=== PATIENT | male | born 1980 | race Two or more races ===

== ENCOUNTER 2024-09-19 18:36 | Emergency (ER) | payer MEDICAID, SELFPAY ==
[2024-09-19 18:36] VITALS: PULSE 113; RESP 18; O2SAT 99
[2024-09-19 18:58] VITALS: BP 152/90; PULSE 99; RESP 18; TEMP 36.8; O2SAT 100; BMI 25.5
--- NOTE | 2024-09-19 19:15 | PD.EDRME ---
Rapid Medical Screening Exam [facility] Arrival date/time: 09/19/24 18:36 43M with history of psych presents to ED with 2 days of epigastric pain. Chief Complaint: Abdominal Pain Vital signs: Vital Signs Temperature 98.3 F 09/19/24 18:58 Pulse Rate 99 09/19/24 18:58 Respiratory Rate 18 09/19/24 18:58 Blood Pressure 152/90 H 09/19/24 18:58 Pulse Oximetry (%) 100 09/19/24 18:58 Oxygen Delivery Method Room Air 09/19/24 18:58
[2024-09-19 19:55] LABS: Basophils % (Auto) 0 % (0-2.5); Eosinophils % (Auto) 0 % (0-10); Hemoglobin 15.8 g/dL (13.5-16.0); Immature Granulocytes % (Auto) 0 % (0-0); Immature Granulocytes Auto 0.03 Thou/mm3 (0.00-0.00); Lymphocytes # (Auto) 1.7 Thou/mm3 (1.0-4.8); Lymphocytes % (Auto) 16 % (10-50); Mean Corpuscular HGB Conc 34.3 g/dl (31.0-37.0); Mean Corpuscular Hemoglobin 29.9 pg (25.0-35.0); Mean Corpuscular Volume 87 fL (80-100); Monocytes # (Auto) 0.5 Thou/mm3 (0.0-0.8); Monocytes % (Auto) 5 % (0-12); Neutrophils # (Auto) 8.2 Thou/mm3 (1.8-7.7); Neutrophils % (Auto) 79 % (37-80); Nucleated Red Blood Cell % 0 /100 WBC (0); Platelet Count 308 Thou/mm3 (140-440); RDW Standard Deviation 42.5 fL (35.1-43.9); Red Blood Count 5.28 Miln/mm3 (4.50-5.90); White Blood Count 10.4 Thou/mm3 (3.8-10.6)
[2024-09-19 20:09] LABS: Amphetamine/Methamp Scrn,U Positive (Negative); Barbiturate Screen,Urine Negative (Negative); Benzodiazepines Screen,Urine Negative (Negative); Benzoylecgonine Screen, Ur Negative (Negative); Fentanyl Screen,Urine Negative (Negative); Opiate Screen,Urine Negative (Negative); THC Screen,Urine Positive (Negative)
[2024-09-19 20:16] LABS: Alanine Aminotransferase 24 U/L (10-49); Albumin, Serum 5.1 gm/dL (3.5-5.0); Albumin/Globulin Ratio 1.6 (1.2-2.2); Alcohol, Blood Medical < 10.0 mg/dL (0-10.0); Alkaline Phosphatase 85 U/L (46-116); Anion Gap 6 (7-16); Aspartate Amino Transferase 43 U/L (0-34); BUN/Creatinine Ratio 13 Ratio (12-20); Bilirubin,Total 0.4 mg/dL (0.3-1.2); Blood Urea Nitrogen 13 mg/dL (9-23); Calcium 10.1 mg/dL (8.3-10.6); Calcium (Corrected) 10.1 mg/dL (8.5-10.1); Carbon Dioxide 25.7 mMol/L (20.0-31.0); Chloride 103 mMol/L (98-107); Globulin 3.2 gm/dL (2.3-3.5); Glucose 115 mg/dL (74-106); Lipase 31 U/L (12-53); Osmolality,Calculated 271 (275-295); Potassium 4.4 mMol/L (3.4-5.1); Sodium 135 mMol/L (136-145); Total Protein 8.3 gm/dL (5.7-8.2); eGFR > 60 See Note
[2024-09-19] MEDS: MG HYD/AL HYD/SIME (Maalox Reg) SUSP 30 ML UDC PO (20:26)
[2024-09-19] MEDS: FAMOTIDINE 20 MG TABLET PO (20:26)
[2024-09-19 20:30] LABS: Collection Type, Urine Clean Catch; RBC,Urine 0 /hpf (0-3); Squamous Epithelial Cell,Urine 0 /hpf (0-5); WBC,Urine 0 /hpf (0-5)
[2024-09-19 20:50] LABS: Bilirubin,Urine Negative (Negative); Blood,Urine Negative (Negative); Clarity,Urine Turbid (Clear/Hazy); Color,Urine Yellow (Lt Yel-Yel); Culture Indicated,Urine Not Indicated; Glucose, Urine Negative (Negative); Ketones,Urine Negative (Negative); Leukocyte Esterase,Urine Negative (Negative); Nitrite,Urine Negative (Negative); PH,Urine 6.5 (5.0-7.0); Protein,Urine 1+ (Neg - Trace); Specific Gravity,Urine 1.023 (1.001-1.035); Urobilinogen,Urine Negative mg/dL (0.0-1.0)
[2024-09-19 22:30] VITALS: BP 150/86; PULSE 110; RESP 19; TEMP 36.9; O2SAT 100
--- NOTE | 2024-09-19 23:57 | EDNOTE_ITS ---
ED Abdominal Pain RME/HPI General Chief Complaint: Abdominal Pain Stated complaint: ABD PAIN, NAUSEA Arrival date/time: 09/19/24 18:36 43M with history of psych/drug use presents to ED with 2 days of epigastric pain. Limitations: no limitations Related Data Home Medications ?Medication ?Instructions ?Recorded ?Confirmed benztropine 0.5 mg tablet 0.5 mg PO BID 02/11/24 02/11/24 divalproex 500 mg tablet,delayed 500 mg PO BID 02/11/24 02/11/24 release haloperidol 10 mg tablet 10 mg PO BID 02/11/24 02/11/24 Previous Rx's ?Medication ?Instructions ?Recorded famotidine 40 mg tablet (Pepcid) 40 mg PO QDAY #30 tabs 09/19/24 Allergies Allergy/AdvReac Type Severity Reaction Status Date / Time garlic Allergy Severe Swelling Verified 08/09/24 09:44 of Lip/Tongue/Throat Review of Systems Review of Systems Systems Reviewed: All systems reviewed, normal except as documented Constitutional Constitutional: Reports system reviewed and no additional complaints, except as documented, Denies fever(s) and Denies headache(s) ENT Ears, Nose, Mouth, and Throat: Denies disequilibrium and Denies headache(s) Cardiovascular Cardiovascular: Reports system reviewed and no additional complaints, except as documented, Denies chest pain and Denies dyspnea Respiratory Respiratory: Reports system reviewed and no additional complaints, except as documented, Denies cough and Denies dyspnea Gastrointestinal Gastrointestinal: Reports system reviewed and no additional complaints, except as documented, Reports as per HPI, Reports abdominal pain, Denies nausea and Denies vomiting Neurologic Neurologic: Reports system reviewed and no additional complaints, except as documented, Denies confusion, Denies disequilibrium and Denies headache(s) Psychiatric Psychiatric: Denies confusion Past Medical History Past Medical History CARDIAC: Negative Congestive Heart Failure RESPIRATORY: Negative Chronic Obstructive Pulmonary Disease (COPD) GENITOURINARY: Negative Renal Disease ENDOCRINE: Negative Diabetes Mellitus Type 1 or Diabetes Mellitus Type 2 PSYCHO/SOCIAL: Positive Schizophrenia and Bipolar Disorder Social History SMOKING STATUS: Never smoker ED Exam General Limitations: Present no limitations General appearance: Present alert and in no apparent distress Head Head exam: Present atraumatic Eye Eye exam: Present normal appearance, PERRL and EOMI ENT ENT exam: Present normal exam, normal oropharynx and mucous membranes moist Neck Neck exam: Present normal inspection, full ROM and trachea midline Chest Chest inspection: Present normal inspection and symmetric chest wall rise Respiratory Respiratory exam: Present normal lung sounds bilaterally Cardiovascular Cardiovascular exam: Present regular rate, normal rhythm and normal heart sounds Abdominal Exam Abdominal exam: Present soft and normal bowel sounds Abdominal tenderness: Present epigastrium and mild Extremities Exam Extremities exam: Present normal inspection and full ROM Back Exam Back exam: Present normal inspection and full ROM Neurological Exam Neurological exam: Present alert, oriented X3 and CN II-XII intact Psychiatric Psychiatric exam: Present normal affect and normal mood Skin Skin exam: Present warm, dry, intact and normal color Course Quality Measures none Orders Category Date Time Status Alcohol, Blood Medical Stat Lab 09/19/24 19:40 Completed CBC Stat Lab 09/19/24 19:40 Completed CMP [Comprehensive Metabolic Panel] Stat Lab 09/19/24 19:40 Completed Drug Screen,Urine Stat Lab 09/19/24 19:29 Completed Lipase Stat Lab 09/19/24 19:40 Completed UA, C/S IF [Urinalysis, C/S if Indicated] Stat Lab 09/19/24 19:29 Completed Famotidine [Pepcid] Med 09/19/24 19:15 Discontinued 20 mg PO X1 ONE mg Hyd/Al Hyd/Sasha Susp [Maalox Susp] Med 09/19/24 19:15 Discontinued 30 ml PO X1 ONE Vital Signs Vital signs: Vital Signs Temperature 98.3 F 09/19/24 18:58 Pulse Rate 99 09/19/24 18:58 Respiratory Rate 18 09/19/24 18:58 Blood Pressure 152/90 H 09/19/24 18:58 Pulse Oximetry (%) 100 09/19/24 18:58 Oxygen Delivery Method Room Air 09/19/24 18:58 O2 at 100% on RA and WNLs Abdominal Pain MDM MDM Narrative MDM Narrative:: 43M with history of psych/drug use presents to ED with 2 days of epigastric pain. Physical exam reveals mild epigastric tenderness. Patient is afebrile, calm, and alert. No leukocytosis. Lipase normal. CMP unremarkable. Meth/marijuana positive. GI cocktail relieved symptoms. Likely gastritis. Patient data External records reviewed:: [facility] previous records Clinical information provided by:: patient Social determinants that could affect healthcare access:: mental health Patient has the following chronic illnesses:: drug/psych How is presenting disease/condition affected by chronic disease/condition?: exacerbated by Evaluation data The following diagnostics were reviewed and interpreted by me:: lab results Lab and/or radiology exams considered but not ordered:: ordered Interpretation Summary: above Medications / Prescriptions Medications or Prescriptions considered but not ordered:: ordered Medication administrations:: Medication Administration History Discontinued Medications Al Hydrox/Mg Hydrox/Simethicone (Mg Hyd/Al Hyd/Sasha (Maalox Reg) Susp 30 Ml Udc) 30 ml PO X1 ONE Stop: 09/19/24 19:16 Last Admin: 09/19/24 20:26 Dose: 30 ml Documented By: CVL Famotidine (Famotidine 20 Mg Tablet) 20 mg PO X1 ONE Stop: 09/19/24 19:16 Last Admin: 09/19/24 20:26 Dose: 20 mg Documented By: CVL above Consultations Consultation(s) initiated? (list below): No Diagnosis Differential diagnosis abdominal pain: abdominal pain, acute appendicitis, calculus of kidney, constipation, diverticulitis, gastroenteritis, pancreatitis, small bowel obstruction and other (gastritis) Most likely diagnosis given after review of the tests above:: gastritis Admission Indicated Admission indicated?: not indicated Admission Request Was there a request for admission?: No Disposition Plan Disposition Plan: Discharge Discharge Attestation Discharge Attestation: The patient and all family members were given an opportunity to ask questions and understood the discharge instructions. Discharge instructions specifically effects, indications for sooner follow up or return to the emergency department, and the expected course of current diagnosis. Patient condition: Stable Discharge Plan Plan Patient Disposition: HOME (Self Care) Disposition Comment: Stable Prescriptions/Referrals Prescriptions/Med Rec: New famotidine [Pepcid] 40 mg tablet 40 mg PO QDAY Qty: 30 0RF No Action benztropine 0.5 mg tablet 0.5 mg PO BID Patient Comments: take 1 tablet by mouth twice a day divalproex 500 mg tablet,delayed release (DR/EC) 500 mg PO BID Patient Comments: take 1 tablet by mouth twice a day haloperidol 10 mg tablet 10 mg PO BID Patient Comments: take 1 tablet by mouth twice a day Referrals: Shola Vera PA-C [Primary Care Provider] - In 1 week Problem List Clinical Impression: Gastritis Patient/Caregiver Discharge Instructions Education Materials: ED Gastritis (Adult) Additional Instructions: Please follow-up with PCP within 24-48 hours and return immediately if symptoms worsen. Print Language: Malaysian Stand Alone Forms: Patient Portal Info Letter PA/QUALITY CONTROL LAB TECH Supervising Physician PA/QUALITY CONTROL LAB TECH Supervising Physician: Dr. Aden
[2024-09-19 23:59] VITALS: BP 150/82; PULSE 106; RESP 18; TEMP 36.7; O2SAT 99
== END 2024-09-20 00:01 | disposition home or self-care (01) ==
PROVIDERS: Physician Assistant; Emergency Provider Emergency Medicine; PCP Physician Assistant
DX: K29.70 Gastritis, unspecified, without bleeding (principal)
CPT/HCPCS: 36415; 80053; 80307; 80320; 81001; 83690; 85025; 99283; A9270; G0480

== ENCOUNTER 2025-01-06 08:15 | Emergency (ER) | payer MEDICAID, SELFPAY ==
[2025-01-06 08:32] VITALS: BP 122/66; PULSE 81; RESP 18; TEMP 36.6; O2SAT 98; BMI 26.6
[2025-01-06 08:43] VITALS: PULSE 110; RESP 20; O2SAT 95
--- NOTE | 2025-01-06 08:43 | PC.NURSE ---
Patient to er via ems from home. [facility] placed patient on 72hr hold for c/o SI stating to [facility] he was going to slit his wrist. Patient non compliant with psych medications, hearing and seeing things per pacu nurse, Currently patient able to follow commands, however, flight of ideas and disorganized speech. Patient talking to himself. Patient denies SI, however, patient states he has tried to shoot himself and cut himself in the past 27 times Patient denies HI and is cooperative and directable. Security searched patient and 1:[address] for patient's safety[address] S/S made aware of patient's hold.
--- NOTE | 2025-01-06 09:05 | PC.NURSE ---
Patient change into gown,document his belongings and place it locker 3
--- NOTE | 2025-01-06 09:09 | PD.EDPSYCH ---
ED Psych RME/HPI General Chief Complaint: Psychiatric Symptoms Stated Complaint: 72hr hold for SI/hearing voices Time Seen by Provider: 01/06/25 08:31 Arrival date/time: 01/06/25 08:15 RME / HPI RME / HPI Narrative: DR. SALDAÑA MAIN ED EVALUATION: 44 year old male with past medical history significant for schizophrenia, bipolar disorder, methamphetamine and marijuana abuse presents to the Emergency Department BIB from [facility] after placed on a psychiatric hold for suicidal ideation. Patient stated that he was going to slit his wrist. Associated symptoms include auditory and visual hallucinations, per med aide. Patient is non complaint with psych medications. Related Data Home Medications ?Medication ?Instructions ?Recorded ?Confirmed benztropine 0.5 mg tablet 0.5 mg PO BID 02/11/24 02/11/24 divalproex 500 mg tablet,delayed 500 mg PO BID 02/11/24 02/11/24 release haloperidol 10 mg tablet 10 mg PO BID 02/11/24 02/11/24 Previous Rx's ?Medication ?Instructions ?Recorded famotidine 40 mg tablet (Pepcid) 40 mg PO QDAY #30 tabs 09/19/24 Allergies Allergy/AdvReac Type Severity Reaction Status Date / Time garlic Allergy Severe Swelling Verified 08/09/24 09:44 of Lip/Tongue/Throat Review of Systems Review of Systems Systems Reviewed: All systems reviewed, normal except as documented Narrative Review of Systems: GEN: No fever, no chills, no weight loss EYES: No discharge, no visual changes, no pain HEENT: No ear pain, no congestion, no sore throat PULM: No shortness of breath, no cough, no congestion CV: No chest pain, no dyspnea on exertion, no palpitations GI: No nausea, no vomiting, no diarrhea, no pain, no constipation : No frequency, no urgency and no dysuria MUSC/SKEL: No joint pain, no back pain SKIN: No rash PSYCH: + suicidal ideation (see HPI), + auditory and visual hallucinations HEME/LYMPH: No easy bleeding or bruising tendencies NEURO: No weakness, no headache Past Medical History Past Medical History PSYCHO/SOCIAL: Positive Schizophrenia and Bipolar Disorder Social History SMOKING STATUS: Never smoker SUBSTANCE USE: marijuana and methamphetamine ALCOHOL: Never ED Exam Narrative Physical exam: GENERAL APPEARANCE:? alert and oriented x 4, well-developed, well-nourished, no acute distress HEENT: normocephalic, atraumatic NECK: supple LUNGS: no respiratory distress, normal effort HEART: good peripheral perfusion ABDOMEN: non distended EXTREMITIES:? atraumatic NEUROLOGIC: awake; alert and oriented x4; cranial nerves II-XII grossly intact PSYCHIATRIC:? pressured speech, agitated moderately SKIN: warm, dry, normal color; no rashes Course Quality Measures none Orders Category Date Time Status Diet Regular Diet 01/06/25 Lunch Active Alcohol, Urine Stat Lab 01/06/25 09:13 Completed Drug Screen,Urine Stat Lab 01/06/25 09:13 Completed DiphenhydrAMINE INJ [Benadryl Inj] Med 01/06/25 09:50 Discontinued 50 mg IM X1 ONE DiphenhydrAMINE [Benadryl] Med 01/06/25 09:38 Discontinued 50 mg PO X1 ONE Divalproex Sod Dr [Deplouisete Dr] Med 01/06/25 09:38 Discontinued 500 mg PO X1 ONE Haloperidol Lactate [Haldol Inj] Med 01/06/25 09:50 Discontinued 5 mg IM X1 ONE LORazepam [Ativan Inj] Med 01/06/25 09:50 Discontinued 2 mg IM X1 ONE LORazepam [Ativan] Med 01/06/25 09:38 Discontinued 2 mg PO X1 ONE haloperidoL [Haldol] Med 01/06/25 09:38 Discontinued 10 mg PO X1 ONE Vital Signs Vital signs: Vital Signs Temperature 97.8 F 01/06/25 08:32 Pulse Rate 81 01/06/25 08:32 Respiratory Rate 18 01/06/25 08:32 Blood Pressure 122/66 01/06/25 08:32 Pulse Oximetry (%) 98 01/06/25 08:32 Oxygen Delivery Method Room Air 01/06/25 08:32 Psych MDM Narrative MDM Narrative:: I, Rosa Elena Ashby am scribing for and in the presence of Dr. Saldaña. Patient data External records reviewed:: [facility] previous records (Reviewed last ED visit dated 09/19/24, discharged with the following: Gastritis.) Clinical information provided by:: patient Social determinants that could affect healthcare access:: substance use (methamphetamine and marijuana abuse) Patient has the following chronic illnesses:: schizophrenia, bipolar disorder How is presenting disease/condition affected by chronic disease/condition?: exacerbated by Evaluation data The following diagnostics were reviewed and interpreted by me:: lab results Lab and/or radiology exams considered but not ordered:: none Interpretation Summary: tested positive for methamphetamine and marijuana Medications / Prescriptions Medications or Prescriptions considered but not ordered:: none Medication administrations:: Medication Administration History Discontinued Medications Diphenhydramine HCl (Diphenhydramine Elix 25 Mg/10 Ml Udc) 50 mg PO X1 ONE Stop: 01/06/25 09:39 Last Admin: 01/06/25 10:32 Dose: Not Given Documented By: BENJI Non-Admin Reason: Duplicate Medication on eMAR Diphenhydramine HCl (Diphenhydramine Inj 50 Mg/Ml Vial) 50 mg IM X1 ONE Stop: 01/06/25 09:51 Last Admin: 01/06/25 10:45 Dose: 50 mg Documented By: RENETTA Divalproex Sodium (Divalproex Sod Dr 500 Mg Tablet.) 500 mg PO X1 ONE Stop: 01/06/25 09:39 Last Admin: 01/06/25 10:32 Dose: Not Given Documented By: BENJI Non-Admin Reason: Discontinued Haloperidol (Haloperidol 5 Mg Tablet) 10 mg PO X1 ONE Stop: 01/06/25 09:39 Last Admin: 01/06/25 10:32 Dose: Not Given Documented By: BENJI Non-Admin Reason: Duplicate Medication on eMAR Haloperidol Lactate (Haloperidol Lact Inj 5 Mg/Ml Vial) 5 mg IM X1 ONE Stop: 01/06/25 09:51 Last Admin: 01/06/25 10:45 Dose: 5 mg Documented By: RENETTA Lorazepam (Lorazepam 0.5 Mg Tablet) 2 mg PO X1 ONE Stop: 01/06/25 09:39 Last Admin: 01/06/25 10:32 Dose: Not Given Documented By: KM Non-Admin Reason: Duplicate Medication on eMAR Lorazepam (Lorazepam 2 Mg/Ml Vial) 2 mg IM X1 ONE Stop: 01/06/25 09:51 Last Admin: 01/06/25 10:45 Dose: 2 mg Documented By: Gera see above Consultations Consultation(s) initiated? (list below): Yes Consultation #1 (Physician, Specialty, Details): Mental health got patient accepted for placement at [facility], patient accepted by Dr. Li. Time: 16:14 Diagnosis Psych Differential Diagnosis: acute psychosis, chronic schizophrenia, suicidal ideation, bipolar disorder, depression, drug-induced psychotic disorder and acute anxiety Most likely diagnosis given after review of the tests above:: Schizophrenia Bipolar disorder Methamphetamine abuse Marijuana abuse Admission Indicated Admission indicated?: not indicated Explain why admission is indicated or not indicated:: Patient accepted for placement at [facility]. Admission Request Was there a request for admission?: No Disposition Plan Disposition Plan: other (specify) (Patient accepted for placement at [facility].) Discharge Plan Prescriptions/Referrals Prescriptions/Med Rec: No Action benztropine 0.5 mg tablet 0.5 mg PO BID Patient Comments: take 1 tablet by mouth twice a day divalproex 500 mg tablet,delayed release (DR/EC) 500 mg PO BID Patient Comments: take 1 tablet by mouth twice a day haloperidol 10 mg tablet 10 mg PO BID Patient Comments: take 1 tablet by mouth twice a day famotidine [Pepcid] 40 mg tablet 40 mg PO QDAY Qty: 30 0RF Referrals: No Primary/Family,Physician [Primary Care Provider] - In 1 week Problem List Clinical Impression: Chronic schizophrenia, Bipolar disorder, Methamphetamine abuse, Marijuana abuse Patient/Caregiver Discharge Instructions Print Language: Malaysian
--- NOTE | 2025-01-06 09:50 | PC.NURSE ---
pt refused to take oral meds
[2025-01-06 10:01] LABS: Alcohol, Urine Negative (Negative); Amphetamine/Methamp Scrn,U Positive (Negative); Barbiturate Screen,Urine Negative (Negative); Benzodiazepines Screen,Urine Negative (Negative); Benzoylecgonine Screen, Ur Negative (Negative); Fentanyl Screen,Urine Negative (Negative); Opiate Screen,Urine Negative (Negative); THC Screen,Urine Positive (Negative)
--- NOTE | 2025-01-06 10:35 | PC.NURSE ---
Patient medically cleared, S/S worker made aware.
[2025-01-06] MEDS: LORazepam 2 MG/ML VIAL IM (10:45)
[2025-01-06] MEDS: DiphenhydrAMINE INJ 50 MG/ML VIAL IM (10:45)
[2025-01-06] MEDS: HALOPERIDOL LACT INJ 5 MG/ML VIAL IM (10:45)
[2025-01-06 11:01] VITALS: BP 128/66; PULSE 61; RESP 18; TEMP 36.6; O2SAT 100
--- NOTE | 2025-01-06 12:21 | PC.CC ---
Patient priscila 44 year-old male who was BIBA on a 5150-hold by [facility]. It was reported by the [facility] that patient has a history of Schizophrenia and has not been compliant with his medication. Valorie ROMAN made [id number] contact with patient. ASW introduced self, role, and reason for visit.?Patient appeared alert and oriented to only to self. Patient presented unkempt and disheveled with disorganized thought process. Patient presented as delusional as having visual and auditory hallucinations. Patient made bizarre statements, I cut everything off down there. ASW unable to engage with client due to hallucinations, bizarre thinking and active hallucinations. ASW unable to have a congruent conversation with patient. Patient reports he does not want to kill himself. However, reports he has had suicide attempts in the past. Patient unable to provide when the last time was. ASW unable to pertain collateral information from mother as patient did consent for ASW to collaborate with mother for further information regarding patient's history of mental health. Patient declined labs. Upon clinical consultation with Kateryna TESFAYE patient's 5150-hold will be upheld for Gravely Disabled and Danger to Self. Valorie ROMAN provided update to Dr. Saldaña, tattooer Kaylene, and bedside RN regarding discharge plan to [facility] facility. ASW to send referral via [place].
[2025-01-06 14:22] VITALS: BP 135/80; PULSE 73; RESP 16; TEMP 36.7; O2SAT 96
--- NOTE | 2025-01-06 15:36 | PC.CC ---
Patient was accepted to [facility] to arrive tomorrow 01/07/2025 by 9am. ASW provided [facility] [place]. Gena with [facility] provided accepting information. Patient accepted by Dr. Li into [facility]. Nurse to Nurse report [phone]. ASW provided Sr. Saldaña, Charge Kaylene, and bedside RN Cristian with discharge plan update. ASW arranging transportation.
[2025-01-06 17:28] VITALS: BP 116/68; PULSE 100; RESP 18; TEMP 36.6; O2SAT 98
--- NOTE | 2025-01-06 17:55 | PC.NURSE ---
Gave pt his dinner tray and eating at this time.
--- NOTE | 2025-01-06 19:57 | EDNOTE_ITS ---
Emergency Room Addendum Addendum Narrative: 1800: Care assumed from the previous shift emergency physician. Past medical, surgical, social and family history reviewed. Vitals and home medications reviewed. I will assume the care of the patient at this time, pending transfer to [facility]. Please refer to the emergency department record for history and examination from initial visit. Physical exam by me shows patient under no acute distress at this time. The patient was placed in ED observation care at 01/06/2025 at 1800 hours. The patients past medical history, social history, and family history were reviewed. The plan of care will include serial examinations. While in ED observation the patient will have access to water, food, and personal hygiene. If the patient takes home medication(s), they will be continued in ED observation. 0600: Patient was signed out to [facility] daysgaft provider. Past medical, surgical, social and family history reviewed. Vitals and home medications reviewed. Results and treatment plan discussed. They will assume the care of the patient at this time and will follow the patient, pending psychiatric placement. MD Attestation MD Attestation Scribe Attestation: I, Yeyo Caldera, am scribing for and in the presence of Dr. Anders. Provider Notation: Although this document has been carefully reviewed, there may still be some phonetic and other typographical errors. These errors are purely grammatical due to imperfections in the software program and should not be construed in any way to compromise the substance of the patient's medical care during this visit.
[2025-01-07 01:01] VITALS: BP 117/74; PULSE 80; RESP 16; TEMP 36.7; O2SAT 97
[2025-01-07 03:22] VITALS: BP 113/75; PULSE 78; RESP 17; TEMP 36.9; O2SAT 96
[2025-01-07 05:47] VITALS: BP 107/71; PULSE 96; RESP 19; TEMP 36.4; O2SAT 95
--- NOTE | 2025-01-07 06:11 | PC.NURSE ---
Pt got into faucet in room and started spilling water onto floor. Engineering called to turn water off, floor was puddled with water. Staff with assistance of security had to go in to assist pt onto sharon for his safety for a fall risk. floor was dried, engineering turn water off.
--- NOTE | 2025-01-07 07:20 | PC.NURSE ---
Received report from Isabel ENGLISH and assumed care of patient. Patient pacing in room and observed talking to self. Awaiting transport.
--- NOTE | 2025-01-07 08:33 | PC.NURSE ---
[facility] picked up patient for transport to [place].
--- NOTE | 2025-01-07 11:29 | PC.NURSE ---
Report given to Rizwana ENGLISH at [facility].
== END 2025-01-07 08:41 ==
PROVIDERS: Emergency Medicine; Emergency Provider Emergency Medicine
DX: R45.851 Suicidal ideations (principal); F20.9 Schizophrenia, unspecified; F15.10 Other stimulant abuse, uncomplicated; F31.9 Bipolar disorder, unspecified; F12.10 Cannabis abuse, uncomplicated
CPT/HCPCS: 80053; 80307; 80320; 85025; 90839; 96127; 96372; 99285; J1200; J1630; J2060; G0480

== ENCOUNTER 2025-02-20 15:25 | Emergency (ER) | payer MEDICAID, SELFPAY ==
[2025-02-20 15:30] VITALS: BP 160/78; PULSE 130; RESP 20; TEMP 36.6; O2SAT 97
--- NOTE | 2025-02-20 15:33 | XR_ITS ---
Examination: PA lateral chest 2 views Technique: Upright PA lateral chest 2 views Exam date and time: February 20, 2025 1704 hrs. Comparison February 20, 2024 Indications: Onset chest pain today. Findings: Normal heart size Thoracic dextroscoliosis 15 degrees No pneumonia or pulmonary edema Impression: No pneumonia or pulmonary edema
--- NOTE | 2025-02-20 15:33 | PD.EDRME ---
Rapid Medical Screening Exam RME Arrival date/time: 02/20/25 15:25 44-year-old male presents to the emergency department for complaints of abdominal pain patient reports using methamphetamine today Chief Complaint: Abdominal Pain Vital signs: Vital Signs Temperature 97.8 F 02/20/25 15:30 Pulse Rate 130 H 02/20/25 15:30 Respiratory Rate 20 02/20/25 15:30 Blood Pressure 160/78 H 02/20/25 15:30 Pulse Oximetry (%) 97 02/20/25 15:30 Oxygen Delivery Method Room Air 02/20/25 15:30
[2025-02-20 16:53] LABS: Basophils % (Auto) 0 % (0-2.5); Eosinophils % (Auto) 0 % (0-10); Hematocrit 44.6 % (41.0-53.0); Hemoglobin 15.3 g/dL (13.5-16.0); Immature Granulocytes % (Auto) 0 % (0-0); Immature Granulocytes Auto 0.03 Thou/mm3 (0.00-0.00); Lymphocytes # (Auto) 0.7 Thou/mm3 (1.0-4.8); Lymphocytes % (Auto) 7 % (10-50); Mean Corpuscular HGB Conc 34.3 g/dl (31.0-37.0); Mean Corpuscular Hemoglobin 29.7 pg (25.0-35.0); Mean Corpuscular Volume 86 fL (80-100); Monocytes # (Auto) 0.5 Thou/mm3 (0.0-0.8); Monocytes % (Auto) 5 % (0-12); Neutrophils # (Auto) 8.6 Thou/mm3 (1.8-7.7); Neutrophils % (Auto) 87 % (37-80); Nucleated Red Blood Cell % 0 /100 WBC (0); Platelet Count 293 Thou/mm3 (140-440); RDW Standard Deviation 44.4 fL (35.1-43.9); Red Blood Count 5.16 Miln/mm3 (4.50-5.90)
[2025-02-20 17:07] LABS: B-Type Natriuretic Peptide < 20 pg/mL (0-100)
[2025-02-20 17:12] LABS: Alanine Aminotransferase 18 U/L (10-49); Albumin, Serum 5.2 gm/dL (3.5-5.0); Albumin/Globulin Ratio 1.7 (1.2-2.2); Alkaline Phosphatase 80 U/L (46-116); Anion Gap 13 (7-16); Aspartate Amino Transferase 41 U/L (0-34); BUN/Creatinine Ratio 15 Ratio (12-20); Bilirubin,Total 0.7 mg/dL (0.3-1.2); Blood Urea Nitrogen 16 mg/dL (9-23); Calcium 9.7 mg/dL (8.3-10.6); Calcium (Corrected) 9.7 mg/dL (8.5-10.1); Chloride 109 mMol/L (98-107); Creatinine (Component) 1.1 mg/dL (0.6-1.3); Globulin 3.1 gm/dL (2.3-3.5); Glucose 136 mg/dL (74-106); Lipase 30 U/L (12-53); Magnesium 2.1 mg/dL (1.6-2.6); Osmolality,Calculated 290 (275-295); Potassium 3.3 mMol/L (3.4-5.1); Sodium 144 mMol/L (136-145); Total Protein 8.3 gm/dL (5.7-8.2); Troponin I < 0.020 ng/mL (0.0-0.045); eGFR > 60 See Note
[2025-02-20 17:51] LABS: Collection Type, Urine Clean Catch; WBC,Urine 0 /hpf (0-5)
[2025-02-20 18:01] LABS: Partial Thromboplastin Time 27.6 Seconds (22.0-36.0); Prothrombin Time 10.9 Seconds (9.0-12.2)
[2025-02-20 18:07] LABS: Amphetamine/Methamp Scrn,U Positive (Negative); Barbiturate Screen,Urine Negative (Negative); Benzodiazepines Screen,Urine Negative (Negative); Benzoylecgonine Screen, Ur Negative (Negative); Bilirubin,Urine Negative (Negative); Blood,Urine 1+ (Negative); Clarity,Urine Clear (Clear/Hazy); Color,Urine Yellow (Lt Yel-Yel); Fentanyl Screen,Urine Negative (Negative); Glucose, Urine Negative (Negative); Ketones,Urine Trace (Negative); Leukocyte Esterase,Urine Negative (Negative); Nitrite,Urine Negative (Negative); Opiate Screen,Urine Negative (Negative); Protein,Urine 1+ (Neg - Trace); RBC,Urine 50 /hpf (0-3); Specific Gravity,Urine 1.035 (1.001-1.035); Squamous Epithelial Cell,Urine < 1 /hpf (0-5); THC Screen,Urine Negative (Negative)
--- NOTE | 2025-02-20 22:16 | EDNOTE_ITS ---
ED Abdominal Pain RME/HPI General Chief Complaint: Abdominal Pain Stated complaint: ABD PAIN X AM Time seen by provider: 02/20/25 22:16 Arrival date/time: 02/20/25 15:25 RME / HPI RME / HPI narrative: 02/20/25 15:25 44-year-old male presents to the emergency department for complaints of abdominal pain patient reports using methamphetamine today Dr. Valles?s Main ED Evaluation: 44yo male presents to the ED for complaints of lower abdominal pain that radiates to his back. Patient states his pain is chronic , reporting he gets it all the time . Patient denies any N/V/D, fever, chills, constipation, decreased appetite or any other associated symptoms. Patient states he drank alcohol and used crystal meth in an attempt to subside his pain at 1400. Denies any abdominal PSH. Related Data Home Medications ?Medication ?Instructions ?Recorded ?Confirmed benztropine 0.5 mg tablet 0.5 mg PO BID 02/11/2402/10 divalproex 500 mg tablet,delayed 500 mg PO BID 4 02/11/24 release haloperidol 10 mg tablet 10 mg PO BID 02/11/24 Previous Rx's ?Medication ?Instructions ?Recorded famotidine 40 mg tablet (Pepcid) 40 mg PO QDAY #30 tab s 09/19/24 Allergies Allergy/AdvReac Type Severity Reaction Status Date / Time garlic Allergy Severe Swelling Verified 02/20/25 15:27 of Lip/Tongue/Throat Review of Systems Review of Systems Systems Reviewed: All systems reviewed, normal except as documented Past Medical History Past Medical History CARDIAC: Negative Congestive Heart Failure RESPIRATORY: Negative Chronic Obstructive Pulmonary Disease (COPD) GENITOURINARY: Negative Renal Disease ENDOCRINE: Negative Diabetes Mellitus Type 1 or Diabetes Mellitus Type 2 PSYCHO/SOCIAL: Positive Schizophrenia and Bipolar Disorder Social History SMOKING STATUS: Light (< 1 pack/day) SUBSTANCE USE: marijuana and methamphetamine ED Exam Narrative Physical exam: GENERAL APPEARANCE: alert and oriented x 4, well-developed, well-nourished, no acute distress VITALS: All vitals were reviewed and the pulse ox is 97% on room air, which is normal according to my interpretation. HEENT: Normocephalic, atraumatic; pupils equal, round, reactive to light; EOMI; mucous membranes pink, moist; oropharynx clear NECK: Supple LUNGS: CTABL; no wheezes, no rales, no rhonchi HEART: Regular rate, regular rhythm; normal S1, S2; no murmurs ABDOMEN: non distended; normal BS; soft, no tenderness, no guarding, no rebound; no masses, no organomegaly, no hernia BACK: no CVA tenderness EXTREMITIES: atraumatic; no edema NEUROLOGIC: awake; alert and oriented x4; cranial nerves II-XII grossly intact; no focal sensory or motor deficits PSYCHIATRIC: appropriate mood and affect; has pressured speech SKIN: warm, dry, normal color; no rashes Course Quality Measures none Orders Category Date Time Status EKG (ED ONLY) *Do not use* NOW Care 02/20/25 15:33 Completed EKG (ED Only) Stat Exams 02/20/25 15:33 Ordered XR chest 2V Stat Exams 02/20/25 15:33 Completed B-Type Natriuretic Peptide Stat Lab 02/20/25 16:17 Completed CBC Stat Lab 02/20/25 16:17 Completed Comprehensive Metabolic Panel Stat Lab 02/20/25 16:17 Completed Drug Screen,Urine Stat Lab 02/20/25 17:33 Completed Lipase Stat Lab 02/20/25 16:17 Completed Magnesium Stat Lab 02/20/25 16:17 Completed Partial Thromboplastin Time Stat Lab 02/20/25 16:17 Completed Prothrombin Time with INR Stat Lab 02/20/25 16:17 Completed Troponin I Stat Lab 02/20/25 16:17 Completed Urinalysis Stat Lab 02/20/25 17:33 Completed Acetaminophen Tab [Tylenol ES Tab] Med 02/20/25 22:24 Discontinued 1,000 mg PO X1 ONE Ketorolac Inj [Toradol Inj] Med 02/20/25 22:24 Discontinued 15 mg IVP X1 ONE Sodium Chloride 0.9% 1000 ml [Ns] 1,000 ml Med 02/20/25 22:24 Discontinued IV 999 mls/hr Vital Signs Vital signs: Vital Signs Temperature 97.8 F 02/20/25 15:30 Pulse Rate 130 H 02/20/25 15:30 Respiratory Rate 20 02/20/25 15:30 Blood Pressure 160/78 H 02/20/25 15:30 Pulse Oximetry (%) 97 02/20/25 15:30 Oxygen Delivery Method Room Air 02/20/25 15:30 Abdominal Pain MDM MDM Narrative MDM Narrative:: Scribe Attestation: 02/20/25 Tessy Mtz am scribing for and in the presence of Dr. Valles. 2223: Patient's blood pressure is 158/85 with a HR of 125. Pain medication and IVF ordered. 2347: Patient's blood pressure is down to 128/71 with a HR of 101 after receiving IVF. Patient is stable to be discharged home. Patient data External records reviewed:: [facility] previous records (Per chart review, patient was seen here on 01/06/25 for bipolar disorder.) Clinical information provided by:: patient Social determinants that could affect healthcare access:: substance use (methamphetamine use) Patient has the following chronic illnesses:: schizophrenia, bipolar disorder How is presenting disease/condition affected by chronic disease/condition?: uneffected by Evaluation data The following diagnostics were reviewed and interpreted by me:: lab results and radiology exam(s) Lab and/or radiology exams considered but not ordered:: none Interpretation Summary: CBC is normal, CMP is normal, Lipase is normal, UDS is positive for me thamphetamines, according to my interpretation. [facility] Report Signed Patient: MOHINDER LOZOYA. Record#: [id number] Birthdate: 1980 Age/Sex: 44 / M Location: [facility] [place] Attending Dr: Ordering Physician: Yoon (JOSH)Ajith NP Date of Service: 02/20/25 Procedure(s): XR chest 2V Accession Number(s): [id number] cc: Yoon (JOSH)Ajith NP; Octavio Rubin MD; Byron Torres MD~ Examination: PA lateral chest 2 views Technique: Upright PA lateral chest 2 views Exam date and time: February 20, 2025 1704 hrs. Comparison February 20, 2024 Indications: Onset chest pain today. Findings: Normal heart size Thoracic dextroscoliosis 15 degrees No pneumonia or pulmonary edema Impression: No pneumonia or pulmonary edema Dictated By: Byron Torres MD Signed By: <Electronically signed by Byron Torres MD in OV> 02/20/25 1832 Medications / Prescriptions Medications or Prescriptions considered but not ordered:: none Medication administrations:: Medication Administration History Discontinued Medications Acetaminophen (Acetaminophen 500 Mg Tablet) 1,000 mg PO X1 ONE Stop: 02/20/25 22:25 Last Admin: 02/20/25 22:55 Dose: 1,000 mg Documented By: Sodium Chloride (Ns) 1,000 mls @ 999 mls/hr IV .Q1H1M ONE Stop: 02/20/25 23:24 Last Infusion: 02/20/25 23:47 Dose: Infused Documented By: Admin: 02/20/25 22:53 Dose: 999 mls/hr Documented By: SE Ketorolac Tromethamine (Ketorolac Inj 30 Mg/Ml Vial) 15 mg IVP X1 ONE Stop: 02/20/25 22:25 Last Admin: 02/20/25 22:56 Dose: 15 mg Documented By: see above Consultations Consultation(s) initiated? (list below): No Diagnosis Differential diagnosis abdominal pain: acute appendicitis, diverticulitis and other (pyelonephritis, kidney stone) Most likely diagnosis given after review of the tests above:: see clinical impression below Admission Indicated Admission indicated?: not indicated Admission Request Was there a request for admission?: No Disposition Plan Disposition Plan: Discharge Discharge Attestation Discharge Attestation: The patient and all family members were given an opportunity to ask questions and understood the discharge instructions. Discharge instructions specifically effects, indications for sooner follow up or return to the emergency department, and the expected course of current diagnosis. Patient condition: Stable Discharge Plan Plan Patient Disposition: HOME (Self Care) Disposition Comment: Stable for discharge home Patient condition on transfer: Stable Prescriptions/Referrals Prescriptions/Med Rec: No Action benztropine 0.5 mg tablet 0.5 mg PO BID Patient Comments: take 1 tablet by mouth twice a day divalproex 500 mg tablet,delayed release (DR/EC) 500 mg PO BID Patient Comments: take 1 tablet by mouth twice a day haloperidol 10 mg tablet 10 mg PO BID Patient Comments: take 1 tablet by mouth twice a day famotidine [Pepcid] 40 mg tablet 40 mg PO QDAY Qty: 30 0RF Referrals: [facility] [Provider Group] - In 1 week Octavio Rubin MD [Primary Care Provider] - In 1 week Problem List Clinical Impression: Abdominal pain, Methamphetamine abuse Patient/Caregiver Discharge Instructions Discharge Activity: activity as tolerated Education Materials: Abdominal Pain, Addiction Ask These Questions, Understanding Methamphetamine ..., ED Drug Abuse Additional Instructions: Please return to the emergency department for any worsening or any further medical problems and we will help you. Otherwise follow-up with your primary care doctor or in the family health care clinic within the next several days. Print Language: Albanian Stand Alone Forms: [facility]anna Award Info., Patient Portal Info Letter
[2025-02-20 22:22] VITALS: BP 158/85; PULSE 125; RESP 19; TEMP 36.7; O2SAT 98
[2025-02-20] MEDS: SODIUM CHLORIDE 0.9% 1000 ML 1,000 ML 999 ML IV (22:53)
[2025-02-20] MEDS: ACETAMINOPHEN 500 MG TABLET 1000 MG PO (22:55)
[2025-02-20] MEDS: KETOROLAC INJ 30 MG/ML VIAL 15 MG IVP (22:56)
[2025-02-20 23:41] VITALS: BP 128/71; PULSE 101; RESP 20; TEMP 37.1; O2SAT 96
== END 2025-02-20 23:56 | disposition home or self-care (01) ==
PROVIDERS: Nurse Practitioner Primary Care; Emergency Provider Emergency Medicine; PCP Family Medicine
DX: R10.30 Lower abdominal pain, unspecified (principal); F15.10 Other stimulant abuse, uncomplicated; R07.9 Chest pain, unspecified
CPT/HCPCS: 36415; 71046; 80053; 80307; 81001; 83690; 83735; 83880; 84484; 85025; 85610; 85730; 93005; 96361; 96374; 99284; J1885; J7030; A9270